=== PATIENT | male | born 1995 | race Caucasian/White ===

== ENCOUNTER 2021-10-10 19:10 | Emergency (ER) | payer BC, MEDICAID, SELFPAY ==
[2021-10-10 19:25] VITALS: BP 135/93; PULSE 81; RESP 15; TEMP 36.8; O2SAT 97; BMI 29.2
--- NOTE | 2021-10-10 19:29 | XRR_ITS ---
PROCEDURE INFORMATION: Exam: XR Left Hand Exam date and time: 10/10/2021 7:47 PM Age: 25 years old Clinical indication: Pain; Hand; Left; Additional info: Injury TECHNIQUE: Imaging protocol: Radiologic exam of the Left hand. Views: 3 or more views. COMPARISON: No relevant prior studies available. FINDINGS: Bones/joints: Fracture of the distal metaphysis of the fifth metacarpal with volar angulation of the distal fracture fragment. Findings are consistent with a boxer's fracture. No dislocation. Normal bone mineralization. No joint effusion. Joint spaces are maintained. Soft tissues: Moderate soft tissue swelling over the 5th metacarpal. No radiopaque foreign body. XR/XR hand LT min 3V* [id number] IMPRESSION: 1. Findings consistent with a boxer's fracture of the distal fifth metacarpal. 2. Moderate soft tissue swelling over the 5th metacarpal.
--- NOTE | 2021-10-10 20:52 | ED_ITS ---
HPI - Extremity Problem General: Chief complaint: Extremity Injury, Upper Stated complaint: Left Hand Pinky Injury Time Seen by Provider: 10/10/21 20:09 Source: patient Mode of arrival: ambulatory Limitations: no limitations History of Present Illness: 25-year-old male states that he had punched a picnic table 2 days ago. He states he had continued left hand pain since then. He states he had swelling as well. He states his pain is sharp in nature rates it a 5 out of 10 worse with palpation. Denies any other injuries. Associated symptoms: Deny chest pain, fever(s) or rash Review of Systems Const: Denies: fever(s), chills, body aches or change in appetite Eyes: Denies: blurry vision or eye discomfort ENMT: Denies: throat pain or dental pain Card: Denies: chest pain Resp: Denies: dyspnea GI: Denies: abdominal pain, nausea, vomiting or diarrhea : Denies: dysuria Musc: Reports: extremity pain Skin/Breast: Denies: rash Neuro: Denies: headache(s) Psych: Denies: depression Alec/Lymph: Denies: easy bruising All/Imm: Denies: urticaria PFSH ED PFSH: Medical History (Updated 10/10/21 @ 21:02 by Donnell Bojorquez MD) No pertinent past medical history Social History (Updated 10/10/21 @ 21:02 by Donnell Bojorquez MD) Substance/Drug Use: never Physical Exam Const: COMMON NORMALS: no acute distress, patient oriented x3 and healthy appearing HENMT: COMMON NORMALS: normocephalic and atraumatic HEAD & SCALP: normocephalic and atraumatic Eye: COMMON NORMALS: Equal, round and reactive pupils present and EOMs intact bilaterally PUPIL: Yes Equal, round and reactive pupils present Neck/C-Spine: COMMON NORMALS: full ROM and supple Chest: COMMONS NORMALS: normal inspection of the chest Resp: COMMON NORMALS: normal respiratory effort Cardio: COMMON NORMALS: regular rate, regular rhythm and No murmurs present (Cardio) RATE: regular rate RHYTHM: regular rhythm GI: INSPECTION: Yes normal to inspection Extremity: NARRATIVE EXTREMITY EXAM: Tenderness over fifth metacarpal left hand with some swelling Neuro: COMMON NORMALS: patient oriented x3, moves all extremities and no focal motor deficits Psych: COMMON NORMALS: mental status grossly normal, Normal thought process present and cooperative THOUGHT PROCESS: Normal thought process present Skin: COMMON NORMALS: no rashes or lesions noted and no wounds GENERAL SKIN EXAM: no rashes or lesions noted Course Vital Signs: Vital signs: Vital Signs Temperature 98.2 F 10/10/21 19:25 Pulse Rate 81 10/10/21 19:25 Respiratory Rate 15 10/10/21 19:25 Blood Pressure 135/93 10/10/21 19:25 Pulse Oximetry 97 10/10/21 19:25 MDM - Extremity (Nontraumatic) Medical Decision Making Patient presents here with a boxer's fracture. Patient placed in a ulnar gutter is to follow-up with orthopedics will prescribe pain meds for home. Lab Data Radiology Impressions Hand X-Ray 10/10/21 19:29 IMPRESSION: 1. Findings consistent with a boxer's fracture of the distal fifth metacarpal. 2. Moderate soft tissue swelling over the 5th metacarpal. Discharge Plan Discharge Patient Disposition: Home Clinical Impression: Boxer's fracture Qualifiers: Encounter type: initial encounter Fracture type: closed Qualified Code(s): S62.339A - Displaced fracture of neck of unspecified metacarpal bone, initial encounter for closed fracture Condition: Stable Prescriptions: New hydrocodone-acetaminophen 5-325 mg tablet 1 tab PO Q6H PRN (Reason: pain) Qty: 14 0RF Discharge Orders: Discharge ED (Routine); Ordered 10/10/21 Ordered By: Donnell Bojorquez Referrals: Adolph Chawla MD [Physician] - 1-3 days Discharge Diet: Advance as tolerated Discharge Activity: Resume usual activity Patient Instructions: Boxer Fracture (ED), Opioid Safety Coding Level of Care Code ED [employer] Crewmember for Laxmi Rodriguez
[2021-10-10] MEDS: HYDROcodone-acetaminophen 5-325 mg Tablet 1 TAB PO (21:04)
--- NOTE | 2021-10-12 14:59 | DCPLANNER ---
Addendum entered by Christi Cheng 10/20/21 13:38: Patient had a follow up appointment scheduled for 10.18.21 with Adrián Montana at ortho - patient did attend appointment. Original Note: manager ent had message to schedule a follow up appointment for patient with ortho. Case management sent patients information to the front office staff at ortho. Patients information will be printed and reviewed. Clinic will call patient with appointment information.
== END 2021-10-10 21:28 | disposition home or self-care (01) ==
PROVIDERS: Emergency Provider Emergency Medicine
DX: S62.307A Unspecified fracture of fifth metacarpal bone, left hand, initial encounter for closed fracture (principal); W22.09XA Striking against other stationary object, initial encounter
CPT/HCPCS: 73130; 99283

== ENCOUNTER → 2021-10-18 09:53 | Outpatient (BNVA) | payer BC, MEDICAID, SELFPAY | PROVIDERS: Visit Provider Nurse Practitioner Family | DX: W22.8XXA Striking against or struck by other objects, initial encounter (principal); S62.339A Displaced fracture of neck of unspecified metacarpal bone, initial encounter for closed fracture | CPT/HCPCS: 73130; 99214 ==

== ENCOUNTER 2021-10-18 15:40 | Outpatient (CLI) | payer BC, MEDICAID, SELFPAY | END 2021-10-18 15:41 | disposition home or self-care (01) | LOC: SPT 15:41 | PROVIDERS: Visit Provider Nurse Practitioner Family | DX: Z46.89 Encounter for fitting and adjustment of other specified devices (principal); S62.397D Other fracture of fifth metacarpal bone, left hand, subsequent encounter for fracture with routine healing; X58.XXXD Exposure to other specified factors, subsequent encounter | CPT/HCPCS: 97760; L3984 ==

== ENCOUNTER 2022-01-18 13:39 | Emergency (ER) | payer BC, MEDICAID, SELFPAY ==
[2022-01-18 13:43] VITALS: BP 157/106; PULSE 80; RESP 16; TEMP 36.3; O2SAT 95; BMI 29.2
--- NOTE | 2022-01-18 13:46 | XR_ITS ---
WS: [id number] Chest 2 views, 01/18/2022 Clinical Data: shortness of breath Comparison: PA and lateral chest, 01/14/2017. Findings: No nodules, masses or effusions are seen. The heart is normal. The pulmonary vascularity is not increased. No pneumonia or pneumothorax is seen. XR/XR chest 2V* [id number] Impression: Negative chest.
--- NOTE | 2022-01-18 14:39 | ED_ITS ---
HPI - SOB/Dyspnea General: Chief Complaint: Shortness of Breath/Dyspnea Stated Complaint: Sob Time Seen by Provider: 01/18/22 14:32 History of Present Illness: HPI Narrative: Patient is a 26-year-old male comes to the ED with shortness of breath and cough. Patient said he has had symptoms now for approximately 1 week. 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 cough is dry and nonproductive. He endorses having some wheezing, but denies any chest pain. No history of asthma but says patient does have an albuterol inhaler at home that he currently ran out of. Denies any fever, chills, nausea/vomiting, bladder or bowel symptoms. Associated symptoms: Deny abdominal pain, chest pain, fever(s), nausea, orthopnea, palpitations or vomiting Review of Systems Const: Denies: fever(s), chills or fatigue Eyes: Denies: change in vision or eye discomfort ENMT: Denies: throat pain, odynophagia, nasal discharge or nasal congestion Card: Denies: chest pain, palpitations, edema, swelling of feet/ankles, dyspnea on exertion or orthopnea Resp: Reports: dyspnea, non-productive cough and wheezing; Denies: productive cough GI: Denies: abdominal pain, nausea, vomiting, diarrhea, constipation or hematochezia : Denies: flank pain, difficulty urinating, dysuria or hematuria Musc: Denies: neck pain, back pain or extremity swelling Skin/Breast: Denies: rash or new lesions Neuro: Denies: headache(s), numbness in extremities or weakness in extremities [facility] ED PFSH: Medical History (Updated 01/18/22 @ 15:19 by BECCA Manzo) No pertinent family history No pertinent past medical history Physical Exam Const: COMMON NORMALS: no acute distress, patient oriented x3, healthy appearing and alert GENERAL APPEARANCE: cooperative and comfortable HENMT: COMMON NORMALS: normocephalic HEAD & SCALP: normocephalic MOUTH: Normal oral and palatal mucosa present THROAT: posterior oropharynx normal and uvula midline Neck/C-Spine: COMMON NORMALS: supple GENERAL: Yes normal visual inspection Resp: COMMON NORMALS: normal respiratory effort, No retractions and No use of accessory muscles AUSCULTATION: wheezes expiratory wheezes and throughout and diminished lung sounds bilateral in the lower lung chopra Cardio: COMMON NORMALS: regular rate, regular rhythm, S1 normal heart sound present, S2 normal heart sound present, No gallops present (Cardio), No clicks present (Cardio), No murmurs present (Cardio) and Peripheral pulses 2+ throughout RATE: regular rate RHYTHM: regular rhythm HEART SOUNDS: S1 normal heart sound present and S2 normal heart sound present PERIPHERAL PULS ES: Peripheral pulses 2+ throughout GI: COMMON NORMALS: Normal to inspection, nondistended, normoactive bowel sounds present, Soft to palpation, non-tender and no masses PALPATION: Yes Soft to palpation : COMMON NORMALS: Yes no CVA tenderness BLADDER/KIDNEY EXAM: Yes no CVA tenderness Back/Pelvis: COMMON NORMALS: no CVA tenderness Extremity: COMMON NORMALS: normal to inspection Neuro: COMMON NORMALS: patient oriented x3 SENSORIUM/ORIENTATION: Yes alert GAIT: Yes Normal gait present Skin: GENERAL SKIN EXAM: dry skin Course Vital Signs: Vital signs: Vital Signs Temperature 97.3 F L 01/18/22 13:43 Pulse Rate 72 01/18/22 14:58 Respiratory Rate 16 01/18/22 14:58 Blood Pressure 157/106 01/18/22 13:43 Pulse Oximetry 95 01/18/22 14:58 Oxygen Delivery Me thod 01/18/22 14:58 MDM - SOB/Dyspnea Medical Decision Making Patient is a 26-year-old male comes to the ED with shortness of breath and cough. Patient said he has had symptoms now for approximately 1 week. 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 cough is dry and nonproductive. He endorses having some wheezing, but denies any chest pain. Vitals are stable. Patient appears nontoxic in no acute distress. Upon auscultation he does have some bilateral expiratory wheezing throughout his lungs and some decreased lung sounds at the bases bilaterally. Rest of exam is benign. Chest x-ray showed no acute findings. Patient was given Solu-Medrol IM and DuoNeb breathing treatment here in the ED and his symptoms improved. He was stable for discharge home and diagnosed with reactive airway disease with wheezing and sent home with a prescription for Medrol Dosepak and an albuterol inhaler. Told to follow-up with his PCP within the next week for reevaluation. Return to ED precautions given. Patient understood and agreed with plan. Lab Data Labs/Radiology: Radiology Impressions Chest X-Ray 01/18/22 13:46 Impression: Negative chest. Discharge Plan Discharge Patient Disposition: Home Clinical Impression: RAD (reactive airway disease) with wheezing Qualifiers: Asthma severity: mild Asthma persistence: intermittent Asthma complication type: uncomplicated Qualified Code(s): J45.20 - Mild intermittent asthma, uncomplicated Condition: Stable Prescriptions: New albuterol sulfate 90 mcg/actuation HFA aerosol inhaler 2 inh inhalation Q6H PRN (Reason: shortness of breath or wheezing) Qty: 8.5 0RF Medrol (Kit) 4 mg tablets,dose pack See Rx Instructions .ROUTE .COMPLEX Qty: 21 0RF Rx Instructions: orally per package directions No Action (DME) FAST FORM CAST - LEFT See Rx Instructions .Route .MEDSUPPLY Qty: 1 0RF Rx Instructions: As directed tramadol 50 mg tablet 50 mg PO Q6H PRN (Reason: pain) Qty: 20 0RF hydrocodone-acetaminophen 5-325 mg tablet 1 tab PO Q6H PRN (Reason: pain) Qty: 14 0RF Discharge Orders: Discharge ED (Routine); Ordered 01/18/22 Ordered By: Tra Alas Discharge Diet: Regular Discharge Activity: Increase activity as tolerated Patient Instructions: Reactive Airways Disease (ED) Activity Restrictions/Additional Instructions: Follow-up with medical provider as directed. Take medications as prescribed. Return to the ER or your medical provider if condition worsens. Please read and understand discharge instructions. Thank you for choosing [facility] for your healthcare needs today. Please realize this is an emergency room and that we are providing you with a medical screening exam and this may not be complete and all inclusive of all the testing and or work up that you may need to determine your ailment or severity of your illness. It is very important that you follow up as instructed or that you return to the Emergency Department should you have concerns or if your condition changes or worsens in any way. Coding Level of Care Code ED Chucking Lathe Operator for Laxmi Rodriguez Exam Comprehensive
[2022-01-18] MEDS: ipratropium-albuterol 3 mL Neb 6 ML INHALATION (14:57)
[2022-01-18 14:58] VITALS: PULSE 72; RESP 16; O2SAT 95
[2022-01-18 15:19] VITALS: BP 143/88; PULSE 88; RESP 16; O2SAT 96
== END 2022-01-18 15:19 | disposition home or self-care (01) ==
PROVIDERS: Emergency Provider Physician Assistant
DX: J45.20 Mild intermittent asthma, uncomplicated (principal)
CPT/HCPCS: 71046; 94640; 96372; 99283; J2930

== ENCOUNTER 2022-07-27 14:02 | Emergency (ER) | payer BC, MEDICAID, SELFPAY ==
[2022-07-27 14:14] VITALS: BP 150/80; PULSE 61; RESP 14; TEMP 36.7; O2SAT 97
--- NOTE | 2022-07-27 15:17 | W.ED.BACK ---
HPI - Back Pain/Injury General: Chief Complaint: Back Pain/Injury Stated Complaint: back pain Time Seen by Provider: 07/27/22 14:26 History of Present Illness: Patient with no significant past medical history presents the emergency department with complaint of bilateral low back pain that began 2 days ago while he was lifting a trailer onto a bigg. He denies any direct trauma, but states that he feels like he pulled out his back and it has been hurting since. He denies any numbness or tingling, denies any use of blood thinners, denies any direct trauma, denies any IV drug use, even once, denies any bowel or bladder retention or incontinence, denies any saddle anesthesia. He has no difficulty walking. He is not taking any [id number]-[id number] medication, but did take a unknown muscle relaxer that his grandma gave him with minimal improvement. No other modifying factors, no other associated symptoms. Review of Systems General: Reports: 10 or more systems reviewed and unremarkable except in HPI and below PFSH ED PFSH: Medical History (Updated 07/27/22 @ 15:25 by Adrian Robison DO) No pertinent family history No pertinent past medical history Social History Substance/Drug Use: never Physical Exam Const: COMMON NORMALS: no acute distress and patient oriented x3 GENERAL APPEARANCE: cooperative and well kempt ORIENTATION/CONSCIOUSNESS: Yes awake HENMT: COMMON NORMALS: normocephalic, atraumatic, hearing grossly normal bilaterally, external ears normal and Normal external nose present HEAD & SCALP: normocephalic and atraumatic FACE & SINUS: normal facial exam NOSE: Normal external nose present EXTERNAL EAR: Yes external ears normal MOUTH: Normal oral and palatal mucosa present THROAT: posterior oropharynx normal Eye: COMMON NORMALS: Equal, round and reactive pupils present and EOMs intact bilaterally PUPIL: Yes Equal, round and reactive pupils present Neck/C-Spine: COMMON NORMALS: supple GENERAL: Yes normal visual inspection CERVICAL SPINE: No Cervical spine tenderness and No step off deformity Chest: COMMONS NORMALS: normal inspection of the chest Resp: COMMON NORMALS: normal respiratory effort, No retractions, No use of accessory muscles and clear to auscultation bilaterally AUSCULTATION: clear to auscultation bilaterally Cardio: COMMON NORMALS: regular rate and Peripheral pulses 2+ throughout RATE: regular rate PERIPHERAL PULSES: Peripheral pulses 2+ throughout GI: COMMON NORMALS: Normal to inspection, nondistended, normoactive bowel sounds present, Soft to palpation and non-tender PALPATION: Yes Soft to palpation : COMMON NORMALS: Yes no CVA tenderness BLADDER/KIDNEY EXAM: Yes no CVA tenderness Back/Pelvis: COMMON NORMALS: no CVA tenderness and thoracic and lumbar spine normal to inspection THORACIC SPINE/UPPER BACK: Yes normal to inspection, Yes thoracic ROM normal, Yes ROM limited, No pain with ROM, No thoracic spinal tenderness, No paraspinal muscle tenderness and No paraspinal muscle spasm LUMBAR SPINE/LOWER BACK: Yes normal to inspection, Yes lumbar ROM normal, Yes ROM limited, Yes pain with ROM, No lumbar spinal tenderness, Yes paraspinal muscle tenderness Lumbar paraspinal muscle tenderness: bilateral and No paraspinal muscle spasm Extremity: COMMON NORMALS: normal to inspection, full ROM and no calf tenderness GENERAL: No clubbing and No cyanosis Neuro: COMMON NORMALS: patient oriented x3, moves all extremities, no focal motor deficits, no sensory deficits noted and gait normal SENSORY EXAM: Yes other (No saddle anesthesia) Psych: COMMON NORMALS: mental status grossly normal, Normal thought process present, cooperative and activity/motor behavior normal APPEARANCE: Yes well kempt ATTITUDE: Yes calm THOUGHT PROCESS: Normal thought process present Skin: COMMON NORMALS: no rashes or lesions noted GENERAL SKIN EXAM: no rashes or lesions noted Course Vital Signs: Vital signs: Vital Signs Temperature 98.1 F 07/27/22 14:14 Pulse Rate 61 07/27/22 14:14 Respiratory Rate 14 07/27/22 14:14 Blood Pressure 150/80 07/27/22 14:14 Pulse Oximetry 97 07/27/22 14:14 Oxygen Delivery Me thod Room Air 07/27/22 14:14 MDM - Back Pain/Injury Medical Decision Making Patient's exam is unremarkable, appears to be mechanical low back pain, no concern for cord compression syndrome. Patient drove himself to the ER and will be driving home, will give him Motrin and Tylenol here, he can be discharged on a course of Motrin and Flexeril and follow-up with primary care. Patient advised to follow-up as directed, return to the emergency department with any new or worsening symptoms or if unable to follow-up as directed or tolerate p.o. intake. Patient verbalized understanding and agreement with this plan, all questions answered. Discharge Plan Discharge Patient Disposition: Home Clinical Impression: Strain of lumbar region Qualifiers: Encounter type: initial encounter Qualified Code(s): S39.012A - Strain of muscle, fascia and tendon of lower back, initial encounter Condition: Stable Prescriptions: New ibuprofen 600 mg tablet 600 mg PO Q8H PRN (Reason: pain) Qty: 30 0RF cyclobenzaprine 10 mg tablet 10 mg PO TID PRN (Reason: muscle spasm) Qty: 7 0RF No Action (DME) FAST FORM CAST - LEFT See Rx Instructions .Route .MEDSUPPLY Qty: 1 0RF Rx Instructions: As directed tramadol 50 mg tablet 50 mg PO Q6H PRN (Reason: pain) Qty: 20 0RF hydrocodone-acetaminophen 5-325 mg tablet 1 tab PO Q6H PRN (Reason: pain) Qty: 14 0RF albuterol sulfate 90 mcg/actuation HFA aerosol inhaler 2 inh inhalation Q6H PRN (Reason: shortness of breath or wheezing) Qty: 8.5 0RF Medrol (Kit) 4 mg tablets,dose pack See Rx Instructions .ROUTE .COMPLEX Qty: 21 0RF Rx Instructions: orally per package directions Discharge Orders: Discharge ED (Routine); Ordered 07/27/22 Ordered By: Adrian Robison Patient Instructions: Opioid Safety, Pain Management, Back Pain (ED), Low Back Strain (ED), Lower Back Exercises (ED) Coding Level of Care Code ED Retail Account Representative for Laxmi Rodriguez
[2022-07-27] MEDS: acetaminophen 500 mg Tablet 1000 MG PO (15:36)
[2022-07-27] MEDS: ibuprofen 800 mg tablet PO (15:36)
[2022-07-27 15:41] VITALS: PULSE 68; RESP 16; O2SAT 96
--- NOTE | 2022-08-01 15:10 | DCPLANNER ---
customer pricing manager called patient due to no primary care physician - patient declines at this time
== END 2022-07-27 15:41 | disposition home or self-care (01) ==
PROVIDERS: Emergency Provider Emergency Medicine
DX: S39.012A Strain of muscle, fascia and tendon of lower back, initial encounter (principal); X50.0XXA Overexertion from strenuous movement or load, initial encounter
CPT/HCPCS: 99283

== ENCOUNTER 2023-06-04 19:45 | Emergency (ER) | payer BC, MEDICAID, SELFPAY ==
[2023-06-04 19:54] VITALS: BP 137/79; PULSE 79; RESP 16; TEMP 36.4; O2SAT 97; BMI 31.5
--- NOTE | 2023-06-04 20:47 | ED_ITS ---
HPI - General Adult General: Chief complaint: General Medical Stated complaint: needs treated for STD Time Seen by Provider: 06/04/23 20:44 Source: patient Mode of arrival: ambulatory Limitations: no limitations History of Present Illness: 27-year-old male states that his girlfri end just been informed she tested positive for chlamydia he was recommended to come in to have testing as well as he has had unprotected sex with her. He states he had no penile pain or dysuria he has no complaints at this time Associated symptoms: Deny chest pain, dyspnea, nausea or vomiting Review of Systems Const: Denies: fever(s) or chills ENMT: Denies: throat pain or dental pain Card: Denies: chest pain Resp: Denies: dyspnea GI: Denies: abdominal pain, nausea, vomiting or diarrhea : Denies: dysuria Musc: Denies: neck pain or back pain PFS ED PFSH: Medical History No pertinent family history No pertinent past medical history Social History Substance/Drug Use: never Physical Exam Const: COMMON NORMALS: no acute distress, patient oriented x3 and healthy appearing HENMT: COMMON NORMALS: normocephalic and atraumatic HEAD & SCALP: normocephalic and atraumatic Eye: COMMON NORMALS: conjunctivae normal CONJUNCTIVA: Yes conjunctivae normal Neck/C-Spine: COMMON NORMALS: full ROM and supple Chest: COMMONS NORMALS: normal inspection of the chest Resp: COMMON NORMALS: normal respiratory effort Extremity: COMMON NORMALS: normal to inspection and full ROM Neuro: COMMON NORMALS: patient oriented x3, moves all extremities and no focal motor deficits Psych: COMMON NORMALS: mental status grossly normal, Normal thought process present and cooperative THOUGHT PROCESS: Normal thought process present Skin: COMMON NORMALS: no rashes or lesions noted and no wounds GENERAL SKIN EXAM: no rashes or lesions noted Course Vital Signs: Vital signs: Vital Signs Temperature 97.6 F 06/04/23 19:54 Pulse Rate 79 06/04/23 19:54 Respiratory Rate 16 06/04/23 19:54 Blood Pressure 137/79 06/04/23 19:54 Pulse Oximetry 97 06/04/23 19:54 Oxygen Delivery Me thod Room Air 06/04/23 19:54 MDM - General Adult Medical Decision Making Patient presents with STD exposure he is asymptomatic here we will check his urine but we will go ahead and treat while here since he had close exposure he s table for discharge No radiology studies performed this visit Discharge Plan Discharge Patient Disposition: Home Clinical Impression: Exposure to sexually transmitted disease (STD) Condition: Stable Prescriptions: No Action (DME) FAST FORM CAST - LEFT See Rx Instructions .Route .MEDSUPPLY Qty: 1 0RF Rx Instructions: As directed tramadol 50 mg tablet 50 mg PO Q6H PRN (Reason: pain) Qty: 20 0RF hydrocodone-acetaminophen 5-325 mg tablet 1 tab PO Q6H PRN (Reason: pain) Qty: 14 0RF ibuprofen 600 mg tablet 600 mg PO Q8H PRN (Reason: pain) Qty: 30 0RF cyclobenzaprine 10 mg tablet 10 mg PO TID PRN (Reason: muscle spasm) Qty: 7 0RF albuterol sulfate 90 mcg/actuation HFA aerosol inhaler 2 inh inhalation Q6H PRN (Reason: shortness of breath or wheezing) Qty: 8.5 0RF Medrol (Kit) 4 mg tablets,dose pack See Rx Instructions .ROUTE .COMPLEX Qty: 21 0RF Rx Instructions: orally per package directions Discharge Orders: Discharge ED (Routine); Ordered 06/04/23 Ordered By: Donnell Bojorquez Discharge Diet: Advance as tolerated Discharge Activity: Resume usual activity Patient Instructions: Sexually Transmitted Diseases (ED) Coding Level of Care Code ED Manufacturing Advisor for Laxmi Rodriguez
[2023-06-04] MEDS: azithromycin 250 mg Tablet 1000 MG PO (20:59)
[2023-06-04] MEDS: cefTRIAXone 250 MG in water for injection-sterile 0.9 ML IM (21:00)
[2023-06-06 17:59] LABS: Chlamydia Trachomatis RNA TMA DETECTED (NOT DETECTED); Neisseria Gonorrhoeae RNA, TMA NOT DETECTED (NOT DETECTED)
== END 2023-06-04 21:04 | disposition home or self-care (01) ==
PROVIDERS: Emergency Provider Emergency Medicine
DX: Z20.2 Contact with and (suspected) exposure to infections with a predominantly sexual mode of transmission (principal)
CPT/HCPCS: 87491; 87591; 96372; 99284; J0696; Q0144

== ENCOUNTER 2024-01-10 18:24 | Inpatient (IN) | payer SELFPAY ==
[2024-01-10 18:28] VITALS: BP 171/152; PULSE 101; RESP 26; TEMP 36.8; O2SAT 89
--- NOTE | 2024-01-10 20:04 | XRR_ITS ---
PROCEDURE INFORMATION: Exam: XR Chest Exam date and time: 01/10/2024 8:53 PM Age: 28 years old Clinical indication: Shortness of breath; Patient HX: Chest pain; SOB; Wheezing TECHNIQUE: Imaging protocol: Radiologic exam of the chest. Views: 1 view. COMPARISON: CR XR chest 2V* [id number] 01/18/2022 1:53 PM FINDINGS: Lungs: Mildly increased left hilar prominence. No consolidation. Pleural spaces: Unremarkable. No pleural effusion. No pneumothorax. Heart/Mediastinum: Unremarkable. No cardiomegaly. Bones/joints: Unremarkable. XR/XR chest 1V portable [id number] IMPRESSION: 1. No acute findings. 2. Increased left hilar prominence is nonspecific. This could represent lymphadenopathy or other etiology. Nonemergent CT chest could be considered for further assessment.
[2024-01-10 21:07] LABS: Basophils # 0.1 10^3/uL (0.0-0.1); Basophils % 1.1 %; Eosinophils # 0.9 10^3/uL (0.0-0.8); Eosinophils % 8.6 %; Hematocrit 49.9 % (37-53); Lymphocytes # 2.7 10^3/uL (0.8-4.8); Lymphocytes % 24.7 %; Mean Corpuscular HGB Conc 33.7 g/dL (30-55); Mean Corpuscular Hemoglobin 29.6 pg (27-33); Mean Platelet Volume 9.7 fL (7.4-10.4); Monocytes % 9.1 %; Neutrophils # 6.09 10^3/uL (1.8-7.7); Neutrophils % 56.2 %; Nucleated Red Blood Cells % 0 %; Platelet Count 290 10^3/cmm (157-399); Red Blood Count 5.67 10^6/uL (3.85-5.65); Red Cell Distribution Width 12.6 % (12.1-15.1); White Blood Count 10.82 10^3/uL (3.29-11.43)
[2024-01-10 21:26] LABS: Anion Gap 16.1 (5-19); Blood Urea Nitrogen 14 mg/dL (6-20); Calcium 9.5 mg/dL (8.5-10.5); Carbon Dioxide 27 mmol/L (22-29); Chloride 98 mmol/L (98-107); Glomerular Filtration Rate 66.2 mL/min (90-130); Glucose 92 mg/dL (65-115); Osmolality Calculated 284 mOsm/kg (285-295); Potassium 4.1 mmol/L (3.5-5.1); Sodium 137 mmol/L (136-145)
[2024-01-10 21:27] LABS: Creatinine Clr Calc Pharmacy 103.2579
--- NOTE | 2024-01-10 21:33 | ECG_ITS ---
[facility] Test Date: 2024-01-10 Pat Name: Kim Horvath Department: Room: Gender: Male [employer]: : 1995 Requested By: Didier Dutta Order Number: [id number] Carolynn MD: Praful Cannon M.D. Measurements Intervals [facility] Rate: 106 P: 60 FL: 163 QRS: 78 QRSD: 89 T: 52 QT: 303 QTc: 404 Interpretive Statements SINUS TACHYCARDIA POSSIBLE LEFT ATRIAL ENLARGEMENT [-0.1mV P-WAVE IN V1/V2] ABNORMAL RHYTHM ECG Compared to ECG 01/13/2017 21:27:54 Sinus bradycardia no longer present Electronically Signed On 01-11-2024 21:01:22 CDT by Praful Cannon M.D. [email or web address]
--- NOTE | 2024-01-10 21:39 | CTR_ITS ---
PROCEDURE INFORMATION: Exam: CTA Chest With Contrast Exam date and time: 01/10/2024 10:04 PM Age: 28 years old Clinical indication: Shortness of breath; On breathing; Patient HX: Painful inspirations with SOB and tachycardia. ; Additional info: Cp SOB tachycardia TECHNIQUE: Imaging protocol: Computed tomographic angiography of the chest with contrast. Exam focused on the arteries. 3D rendering (Not supervised by radiologist): MIP and/or 3D reconstructed images were created by the technologist. Radiation optimization: All CT scans at this facility use at least one of these dose optimization techniques: automated exposure control; mA and/or kV adjustment per patient size (includes targeted exams where dose is matched to clinical indication); or iterative reconstruction. Contrast material: OMNI 350; Contrast volume: 60 ml; Contrast route: INTRAVENOUS (IV); COMPARISON: CR (CHEST, ) 01/10/2024 8:53 PM RADIATION DOSE METRICS: Total DLP (mGy-cm): 526.32 FINDINGS: Pulmonary arteries: Normal. No pulmonary emboli. Aorta: Unremarkable. No aortic aneurysm. No aortic dissection. Lungs: A few scattered ground-glass opacities are seen in the left upper and left lower lobes. No focal consolidation. Pleural spaces: Unremarkable. No pneumothorax. No pleural effusion. Heart: Unremarkable. No cardiomegaly. No pericardial effusion. Lymph nodes: Unremarkable. No enlarged lymph nodes. Liver: Marked hepatic steatosis. Bones/joints: Unremarkable. No acute fracture. Soft tissues: Unremarkable. CT/CT angio chest PE protcl [id number] IMPRESSION: 1. No evidence of pulmonary emboli. 2. Scattered ground-glass opacities in the left upper and lower lobes could represent a multifocal infection from an atypical infectious process. Recommend imaging follow-up after clinical treatment to document resolution. 3. Severe hepatic steatosis.
[2024-01-10 21:50] VITALS: PULSE 114; RESP 26; O2SAT 93
[2024-01-10 21:55] LABS: ABG PCO2 42.5 mmHg (35-45); ABG PH Result 7.36 (7.35-7.45); Arterial Blood Gas Hematocrit 52.5 % (42-52); Base Excess ABG -1.4 mmol/L (-2.0-2.0); Blood Gas Allen Test Pos; Blood Gas Sample Type Arterial; HCO3 ABG 24.2 mmol/L (22-26); PO2 ABG 69.1 mmHg (80.0-100.0)
[2024-01-10 21:56] LABS: Blood Gas Operator Identificat 4D; Blood Gas Sample Site Radial, right; Oxygen Device NC; PO2 FiO2 Ratio Arterial Blood 215
[2024-01-10] MEDS: methylPREDNISolone sod succ 125 mg/2 mL INJ IVP (21:57)
[2024-01-10 22:00] VITALS: PULSE 108
[2024-01-10] MEDS: ipratropium-albuterol 3 mL Neb INHALATION (22:00)
[2024-01-10 22:08] LABS: Covid PCR NEGATIVE (Negative); Influenza A NEGATIVE (Negative); Influenza B NEGATIVE (Negative); Respiratory Syncytial Virus Ce NEGATIVE (Negative)
[2024-01-10] MEDS: iohexol 350 mg/mL 500 mL Btl (per mL) IV (22:08)
[2024-01-10 22:16] LABS: Lactic Sepsis W/Reflex 1.7 mmol/L (0.5-2.2)
[2024-01-10 22:18] LABS: Troponin(5th) Baseline 8 ng/L (0-15)
[2024-01-10 22:19] VITALS: BP 134/105; PULSE 99; RESP 18; O2SAT 93
--- NOTE | 2024-01-10 22:25 | ED_ITS ---
HPI - SOB/Dyspnea 2 General: Chief Complaint: Shortness of Breath/Dyspnea Stated Complaint: trouble breathing Time Seen by Provider: 01/10/24 21:29 History of Present Illness: HPI Narrative: 28-year-old male patient who says he is been sick for a week with cough, shortness of breath, and some body aches. His states that he can walk down the [place]inn without resting for several minutes. Cough is productive of clear to white sputum. He has had noisy breathing. No sick contacts. He does not have a history of asthma. In triage, his saturations were 89% on room air with tachypnea. They were 87 on arrival to his room. Related Data Previous Rx's Medication Instructions Recorded hydrocodone 5 mg-acetaminophen 325 1 tab PO Q6H PRN pain #14 tabs 10/10/21 mg tablet FAST FORM CAST - LEFT #1 ea 10/18/21 tramadol 50 mg tablet 50 mg PO Q6H PRN pain #20 tabs 10/18/21 albuterol sulfate 90 mcg/actuation 2 inh inhalation Q6H PRN shortness 01/18/22 aerosol inhaler of breath or wheezing #8.5 grams methylprednisolone 4 mg tablets in See Rx Instructions PO .COMPLEX 01/18/22 a dose pack (Medrol (Kit)) #21 ea cyclobenzaprine 10 mg tablet 10 mg PO TID PRN muscle spasm #7 07/27/22 tabs ibuprofen 600 mg tablet 600 mg PO Q8H PRN pain #30 tabs 07/27/22 Allergies Allergy/AdvReac Type Severity Reaction Status Date / Time No Known Allergies Allergy Verified 01/10/24 18:33 [facility] ED 2 PFSH: Medical History No pertinent family history No pertinent past medical history Social History Substance/Drug Use: never Physical Exam 2 Const: COMMON NORMALS: no acute distress GENERAL APPEARANCE: cooperative and ill appearing; not frail appearing HENMT: COMMON NORMALS: normocephalic, atraumatic and Normal external nose present HEAD & SCALP: normocephalic and atraumatic FACE & SINUS: normal facial exam and face symmetric NOSE: Normal external nose present Eye: COMMON NORMALS: Equal, round and reactive pupils present and EOMs intact bilaterally PUPIL: Yes Equal, round and reactive pupils present Neck/C-Spine: GENERAL: Yes trachea midline Chest: CHEST: Yes Symmetrical chest wall rise Resp: EFFORT & INSPECTION: No able to speak in complete sentences, Yes symmetric chest movement, Yes tachypneic, Yes labored and No retractions A USCULTATION: rhonchi and wheezes Cardio: COMMON NORMALS: regular rate and regular rhythm RATE: regular rate RHYTHM: regular rhythm GI: COMMON NORMALS: Normal to inspection, nondistended, normoactive bowel sounds present Extremity: COMMON NORMALS: no pedal edema Neuro: SANDRA COMA SCALE: document GCS findings Sandra coma scale eye opening: Spontaneous [place] coma scale verbal response: Orientated [place] coma scale motor response: Obey commands Sandra coma scale total score: 15 S ENSORY EXAM: Yes extremities (intact) Psych: COMMON NORMALS: speech normal SPEECH: Yes normal speech Skin: COMMON NORMALS: no rashes or lesions noted GENERAL SKIN EXAM: no rashes or lesions noted Course 2 Vital Signs: Vital signs: Vital Signs Temperature 98.2 F 01/10/24 18:28 Pulse Rate 110 H 01/10/24 23:45 Respiratory Rate 18 01/10/24 22:19 Blood Pressure 147/83 01/10/24 23:45 Pulse Oximetry 93 01/10/24 23:45 Oxygen Delivery Me thod Nasal Cannula 01/10/24 23:45 Oxygen Flow Rate 3 01/10/24 23:45 MDM - SOB/Dyspnea Medical Decision Making Patient has had shortness of breath, chest discomfort on and off, tachycardia and tachypnea. He is hypoxic on presentation. His blood gas shows a pH of 7.36 despite tachypnea his chest x-ray is nonacute. He is improved with nasal cannula oxygenation, DuoNeb treatment, Solu-Medrol, and magnesium. He still requiring quite a bit of oxygen to maintain sats above 90%. He is in less distress. CTA of the chest shows scattered groundglass opacities in the left upper and lower lobes likely an atypical pneumonia. He has received Rocephin and Zithromax here. Given his oxygen requirement, he will be admitted. Will still require breathing treatments, etc. Hospitalist has accepted Lab Data 01/10/24 20:39 01/10/24 20:39 Labs/Radiology: Radiology Impressions Chest X-Ray 01/10/24 20:04 IMPRESSION: 1. No acute findings. 2. Increased left hilar prominence is nonspecific. This could represent lymphadenopathy or other etiology. Nonemergent CT chest could be considered for further assessment. Chest CTA 01/10/24 21:39 IMPRESSION: 1. No evidence of pulmonary emboli. 2. Scattered ground-glass opacities in the left upper and lower lobes could represent a multifocal infection from an atypical infectious process. Recommend imaging follow-up after clinical treatment to document resolution. 3. Severe hepatic steatosis. Laboratory Results WBC 10.82 10^3/uL (3.29-11.43) 01/10/24 20:39 RBC 5.67 10^6/uL (3.85-5.65) H 01/10/24 20:39 Hgb 16.80 g/dL (11.27-16.99) 01/10/24 20:39 Hct 49.9 % (37-53) 01/10/24 20:39 MCV 88.0 fl (82-101) 01/10/24 20:39 MCH 29.6 pg (27-33) 01/10/24 20:39 MCHC 33.7 g/dL (30-55) 01/10/24 20:39 RDW 12.6 % (12.1-15.1) 01/10/24 20:39 Plt Count 290 10^3/cmm (157-399) 01/10/24 20:39 MPV 9.7 fL (7.4-10.4) 01/10/24 20:39 Neut % (Auto) 56.2 % 01/10/24 20:39 Lymph % (Auto) 24.7 % 01/10/24 20:39 Baker % (Auto) 9.1 % 01/10/24 20:39 Eos % (Auto) 8.6 % 01/10/24 20:39 Baso % (Auto) 1.1 % 01/10/24 20:39 Neut # (Auto) 6.09 10^3/uL (1.8-7.7) 01/10/24 20:39 Lymph # (Auto) 2.7 10^3/uL (0.8-4.8) 01/10/24 20:39 Baker # (Auto) 1.0 10^3/uL (0.2-0.9) H 01/10/24 20:39 Eos # (Auto) 0.9 10^3/uL (0.0-0.8) H 01/10/24 20:39 Baso # (Auto) 0.1 10^3/uL (0.0-0.1) 01/10/24 20:39 Nucleated RBC % (auto) 0 % 01/10/24 20:39 Nucleated RBCs # 0.0 /100WBC 01/10/24 20:39 Specimen Type Arterial 01/10/24 21:46 Sample Site Radial, right 01/10/24 21:46 ABG pH 7.36 (7.35-7.45) 01/10/24 21:46 ABG pCO2 42.5 mmHg (35-45) 01/10/24 21:46 ABG pO2 69.1 mmHg (80.0-100.0) L 01/10/24 21:46 ABG PO2/FiO2 Ratio 215 01/10/24 21:46 ABG HCO3 24.2 mmol/L (22-26) 01/10/24 21:46 ABG Base Excess -1.4 mmol/L (-2.0-2.0) 01/10/24 21:46 Sawyer Test Pos 01/10/24 21:46 Hematocrit 52.5 % (42-52) H 01/10/24 21:46 O2 Delivery Device Nc 01/10/24 21:46 O2 Liters/Min 3.0 % 01/10/24 21:46 FiO2 32.0 % 01/10/24 21:46 Ditch Inspector ID [id number] 01/10/24 21:46 Sodium 137 mmol/L (136-145) 01/10/24 20:39 Potassium 4.1 mmol/L (3.5-5.1) 01/10/24 20:39 Chloride 98 mmol/L (98-107) 01/10/24 20:39 Carbon Dioxide 27 mmol/L (22-29) 01/10/24 20:39 Anion Gap 16.1 (5-19) 01/10/24 20:39 BUN 14 mg/dL (6-20) 01/10/24 20:39 Creatinine 1.3 mg/dL (0.7-1.2) H 01/10/24 20:39 GFR Calculation 66.2 mL/min (90-130) L 01/10/24 20:39 Glucose 92 mg/dL (65-115) 01/10/24 20:39 Calculated Osmolality 284 mOsm/kg (285-295) L 01/10/24 20:39 Lactic Acid 1.7 mmol/L (0.5-2.2) 01/10/24 21:50 Calcium 9.5 mg/dL (8.5-10.5) 01/10/24 20:39 Troponin T Baseline 8 ng/L (0-15) 01/10/24 21:50 Coronavirus (PCR) Negative (Negative) 01/10/24 21:26 Influenza A (PCR) Negative (Negative) 01/10/24 21:26 Influenza Type B (PCR) Negative (Negative) 01/10/24 21:26 RSV (PCR) Negative (Negative) 01/10/24 21:26 All radiology interpretation(s) finalized by discharge Discharge Plan Discharge Patient Disposition: Admitted As Inpatient Clinical Impression: Community acquired pneumonia, Acute hypoxemic respiratory failure Condition: Fair Prescriptions: No Action (DME) FAST FORM CAST - LEFT See Rx Instructions .Route .MEDSUPPLY Qty: 1 0RF Rx Instructions: As directed tramadol 50 mg tablet 50 mg PO Q6H PRN (Reason: pain) Qty: 20 0RF hydrocodone-acetaminophen 5-325 mg tablet 1 tab PO Q6H PRN (Reason: pain) Qty: 14 0RF ibuprofen 600 mg tablet 600 mg PO Q8H PRN (Reason: pain) Qty: 30 0RF cyclobenzaprine 10 mg tablet 10 mg PO TID PRN (Reason: muscle spasm) Qty: 7 0RF albuterol sulfate 90 mcg/actuation HFA aerosol inhaler 2 inh inhalation Q6H PRN (Reason: shortness of breath or wheezing) Qty: 8.5 0RF Medrol (Kit) 4 mg tablets,dose pack See Rx Instructions .ROUTE .COMPLEX Qty: 21 0RF Rx Instructions: orally per package directions Coding Level of Care Code ED Sales And Marketing Assistant for Laxmi Rodriguez
[2024-01-10] MEDS: magnesium sulfate premix 2 GM/50 ML PIGGYBACK IV (22:32)
--- NOTE | 2024-01-10 22:59 | PC.NURSE ---
Assumed care from Sadie PRATHER at this time.
[2024-01-10 23:11] VITALS: PULSE 94; O2SAT 91
[2024-01-10] MEDS: cefTRIAXone 1,000 mg SDV 1000 MG IVP (23:39)
[2024-01-10] MEDS: azithromycin 500 MG in sodium chloride 0.9% 250 ML 250 MG IV (23:39)
--- NOTE | 2024-01-10 23:41 | ECG_ITS ---
[facility] Test Date: 2024-01-10 Pat Name: Kim Horvath Department: Room: Gender: Male Slope Runner: : 1995 Requested By: Didier Dutta Order Number: [id number] Carolynn MD: Praful Cannon M.D. Measurements Intervals [place] Rate: 91 P: 48 TX: 167 QRS: 67 QRSD: 95 T: 43 QT: 328 QTc: 404 Interpretive Statements SINUS RHYTHM Compared to ECG 01/10/2024 21:33:27 Sinus tachycardia no longer present Electronically Signed On 01-11-2024 21:18:06 CDT by Praful Cannon M.D. [email or web address] Softwareadena fayette medical centerINRFOOD/store/OM/[id number]
[2024-01-10 23:45] VITALS: BP 147/83; PULSE 110; O2SAT 93
[2024-01-11] VITALS (18 sets, daily range): BP systolic 139–168; BP diastolic 84–103; PULSE 72–113; RESP 14–22; TEMP 36.5–36.8; O2SAT 91–95; BMI 33.1
--- NOTE | 2024-01-11 00:05 | PC.NURSE ---
Report was called to Shruti FERNANDES on [place]. All questions and concerns were addressed at time of report.
--- NOTE | 2024-01-11 01:51 | P.HP_ITS ---
Providers/Chief Complaint 2 Admitting Physician: Enriqueta Coleman MD Chief Complaint: trouble breathing History of Present Illness Kim Horvath is a 28 year old male with no known PMH who presented to the ER today with c/o shortness of breath, cough that started about w week ago. He states that he developed subjective fever, cough and dyspnea one week ago. He feels short of breath with minimal exertion. He has been using his grandmother's inhaler at home (doesn't know what kind) without any relief. He has a new oxygen requirement of 3 L/min supplemental oxygen via nasal cannula. Denies any chest pain. Denies any known cardiac history. No h/o asthma or COPD. Ex smoker, quit 6 months ago. No h/o vaping. no known sick contacts. Has 2 kids- 2 yrs and 8 mo- neither is sick. No recent travel. Has dogs as pets. Review of Systems 2 General: Reports: 10 or more systems reviewed and unremarkable except in HPI and below Const: Denies: fever(s), chills or body aches Eyes: Denies: change in vision, blurry vision or photophobia ENMT: Reports: hoarseness; Denies: throat pain, enlarged tonsils, odynophagia or nasal congestion Card: Denies: chest pain, palpitations, irregular heart rhythm, edema, swelling of feet/ankles, lightheadedness, pre-syncope, dyspnea on exertion or orthopnea Resp: Denies: dyspnea, productive cough, non-productive cough, wheezing, stridor, pain on inspiration, change in phlegm color, hemoptysis or chest congestion GI: Denies: abdominal pain, nausea, vomiting, hematemesis, coffee ground emesis, dysphagia, heartburn, diarrhea, constipation, GI cramping, change in stool character, hematochezia or melena : Denies: flank pain, dysuria, urinary frequency, urinary urgency, urinary hesitancy or hematuria Musc: Denies: neck pain, back pain, extremity pain, joint swelling, joint warmth or deformity Neuro: Denies: headache(s), numbness in extremities, weakness in extremities, sensory changes, difficulty walking, frequent falls, dizziness, vertigo, behavioral changes, Slurred speech present or seizure-like activity Psych: Denies: anxiety, depression, suicidal ideation or homicidal ideation Endo: Denies: polyuria, polydipsia, tired all the time, cold intolerance or hot flashes Alec/Lymph: Denies: easy bruising or easy bleeding Medications/Allergies Home Medications Medication Instructions Recorded Confirmed Last Taken Type FAST FORM CAST - LEFT #1 ea 10/18/21 10/18/21 Unknown Rx ibuprofen 600 mg tablet 600 mg PO Q8H PRN pain #30 tabs 07/27/22 01/11/24 Unknown Rx Allergies Allergy/AdvReac Type Severity Reaction Status Date / Time No Known Allergies Allergy Verified 01/10/24 18:33 PFSH Acute 2 PFSH: Medical History No pertinent family history No pertinent past medical history Social History Substance/Drug Use: never Vitals/I&O/Wt Last Vital Signs Temp 98.0 F 01/11/24 01:03 Pulse 88 01/11/24 01:03 Resp 22 H 01/11/24 01:03 BP 139/90 01/11/24 01:03 Pulse Ox 93 01/11/24 01:03 O2 Del Method Nasal Cannula 01/11/24 01:04 O2 Flow Rate 3 01/10/24 23:45 01/10/24 01/10/24 01/11/24 14:59 22:59 06:59 Intake Total 300 / 300 Balance 300 / 300 Weight last 48 hrs Weight 107.728 kg Weight 104.326 kg Physical Exam 2 Narrative: General: No acute distress, AO x3 HEENT: PERRLA, pupils bilaterally equal and reactive, pallors not present Chest: scattered wheezing to auscultation B/L ; R>L. CVS: S1-S2 regular, no murmurs, no tachycardia, no gallops, no rubs Abdomen: Soft, nontender, no organomegaly, bowel sounds present Neuro: No focal deficits, no facial deformity, AO x3, power 5/5 in all limbs Data 01/10/24 20:39 01/10/24 20:39 Micro: Microbiology 01/10/24 22:47 Blood Culture - Preliminary Blood SPECIMEN COLLECTED 01/10/24 21:50 Blood Culture - Preliminary Blood SPECIMEN COLLECTED Other data: CT/CT angio chest PE protcl [id number] IMPRESSION: 1. No evidence of pulmonary emboli. 2. Scattered ground-glass opacities in the left upper and lower lobes could represent a multifocal infection from an atypical infectious process. Recommend imaging follow-up after clinical treatment to document resolution. 3. Severe hepatic steatosis. A&P Assessment and plan (1) Community acquired pneumonia: Qualifiers: Laterality: left Lung location: unspecified part of lung Qualified Code(s): J18.9 - Pneumonia, unspecified organism (2) Acute hypoxemic respiratory failure: (3) Reactive airway disease: (4) Acute bronchitis: Plan 28-year-old male without any significant known comorbidities presenting to the hospital today with chief complaints of 1 week of cough and dyspnea which has been progressing over the past week. He has a new oxygen requirement of 3 L/min today. CTA of the chest negative for pulmonary embolism. Showed scattered bi lateral multifocal opacities which likely represent community-acquired pneumonia, possible atypical pneumonia. Possibility of recent viral pneumonitis with overlying acute bacterial bronchitis versus pneumonia not excluded. Bilateral wheezing on exam right worse than left. Start IV ceftriaxone 1 g every 24 hours and doxycycline 100 mg twice daily for atypical process. Check MRSA nasal swab, urine bacterial antigen, urine Legionella antigen, sputum Gram stain and culture. Blood culture taken in the ER, currently pending Methylprednisolone 40 mg IV every 8 hours. Diffuse bilateral wheezing may be apprenticeship training representative of bronchitis versus reactive airway disease after recent infection. DuoNeb inhalation every 6 hours, budesonide 0.5 mg twice daily Supplemental O2 to keep saturation greater than 92%. EKG without any acute ST-T wave changes. Troponin series unremarkable. Clinically appearing to be euvolemic. Monitor for improvement with above treatment, further orders to be dependent on clinical course. DVT prophylaxis: Lovenox 40 mg subcutaneously every 24 hours Full code Attestations 2 Medical Necessity Statement*: Greater than 2 midnight stay is anticipated at this time Coding Level of Care Code Acute Code for Chg Fwd High MDM includes number and complexity of problems actively addressed during encounter, amount and/or complexity of data reviewed/ordered and described risk of complication, morbidity or mortality of management as documented Diagnoses Community acquired pneumonia J18.9 Laterality: left Lung location: unspecified part of lung Acute hypoxemic respiratory failure J96.01 Reactive airway disease J45.909 Acute bronchitis J20.9
[2024-01-11] MEDS: ipratropium-albuterol 3 mL Neb INHALATION ×4 (02:52→20:10)
--- NOTE | 2024-01-11 03:12 | ECG_ITS ---
[facility] Test Date: 2024-01-11 Pat Name: Kim Horvath Department: Room: 277 Gender: Male Picker Operator: : 1995 Requested By: Didier Dutta Order Number: [id number] Carolynn MD: Praful Cannon M.D. Measurements Intervals [place] Rate: 76 P: 23 MO: 159 QRS: 64 QRSD: 94 T: 38 QT: 355 QTc: 400 Interpretive Statements SINUS RHYTHM Compared to ECG 01/10/2024 23:41:31 No significant changes Electronically Signed On 01-11-2024 21:18:31 CDT by Praful Cannon M.D. [email or web address] children's hospitalCar Guy Nationgood samaritan hospitalAllele Biotech/store/OM/[id number]
[2024-01-11 04:13] LABS: NT Pro B Type Natriuretic Pept < 36 pg/mL (0-125); Procalcitonin 0.11 ng/mL (0-0.5)
[2024-01-11 04:26] LABS: C Reactive Protein 19.2 mg/L (0.0-4.9)
[2024-01-11] MEDS: methylPREDNISolone sod succ 40 mg/mL INJ IVP ×3 (04:53→21:03)
[2024-01-11 06:52] LABS: MRSA PCR OZH (swab) NOT DETECTED (Negative)
[2024-01-11] MEDS: budesonide 0.5 mg/2 mL Neb INHALATION ×2 (07:52→20:09)
[2024-01-11] MEDS: pantoprazole DR 40 mg Tablet PO (08:46)
[2024-01-11] MEDS: benzonatate 100 mg Capsule PO ×2 (08:46→17:33)
[2024-01-11] MEDS: doxycycline 100 mg Tablet PO ×2 (08:46→17:33)
[2024-01-11 11:31] LABS: Basophils % 0.2 %; Hematocrit 48.1 % (37-53); Lymphocytes # 1.6 10^3/uL (0.8-4.8); Lymphocytes % 17.6 %; Mean Corpuscular HGB Conc 33.7 g/dL (30-55); Mean Corpuscular Hemoglobin 29.3 pg (27-33); Mean Platelet Volume 9.7 fL (7.4-10.4); Monocytes # 0.3 10^3/uL (0.2-0.9); Monocytes % 3.6 %; Neutrophils # 7.28 10^3/uL (1.8-7.7); Neutrophils % 78.2 %; Nucleated Red Blood Cells % 0 %; Platelet Count 311 10^3/cmm (157-399); Red Blood Count 5.53 10^6/uL (3.85-5.65); Red Cell Distribution Width 12.6 % (12.1-15.1); White Blood Count 9.32 10^3/uL (3.29-11.43)
[2024-01-11 11:50] LABS: Estmated Average Glucose 111; Hemoglobin A1C 5.5 % (4.0-6.0)
[2024-01-11 12:06] LABS: Alanine Aminotransferase 115 U/L (0-41); Albumin Level 4.5 g/dL (3.5-5.2); Alkaline Phosphatase 96 U/L (40-130); Anion Gap 18.2 (5-19); Aspartate Amino Transferase 31 U/L (0-40); Blood Urea Nitrogen 15 mg/dL (6-20); Calcium 9.4 mg/dL (8.5-10.5); Carbon Dioxide 22 mmol/L (22-29); Chloride 100 mmol/L (98-107); Creatinine Clr Calc Pharmacy 138.5367; Globulin 3.3 g/dL (1.3-4.6); Glomerular Filtration Rate 89.6 mL/min (90-130); Glucose 137 mg/dL (65-115); Iron 78 ug/dL (59-158); Osmolality Calculated 285 mOsm/kg (285-295); Percent Saturation 25.4 % (20-50); Potassium 4.2 mmol/L (3.5-5.1); Sodium 136 mmol/L (136-145); Total Bilirubin 0.4 mg/dL (0.15-1.2); Total Iron Binding Capacity 306 mcg/dl; Total Protein 7.8 g/dL (6.6-8.7); Unsaturated Iron Binding 228 ug/dL (112-347)
[2024-01-11 12:21] LABS: Procalcitonin 0.09 ng/mL (0-0.5); Vitamin B12 584 pg/mL (232-1245)
[2024-01-11 13:48] LABS: Adenovirus Not Detected (NOT DETECT); Chlamydia Pneumoniae Not Detected (NOT DETECT); Coronavirus 229E,HKU1,NL63,OC4 Not Detected (NOT DETECT); Human Metapneumovirus Not Detected (NOT DETECT); Human Rhinovirus/Enterovirus Not Detected (NOT DETECT); Influenza A Not Detected (NOT DETECT); Influenza A H1 Not Detected (NOT DETECT); Influenza A H1-2009 Not Detected (NOT DETECT); Influenza A H3 Not Detected (NOT DETECT); Influenza B Not Detected (NOT DETECT); Mycoplasma Pneumoniae Not Detected (NOT DETECT); Parainfluenza Virus Type 1 Not Detected (NOT DETECT); Parainfluenza Virus Type 2 Not Detected (NOT DETECT); Parainfluenza Virus Type 3 Not Detected (NOT DETECT); Parainfluenza Virus Type 4 Not Detected (NOT DETECT); Respiratory Syncytial Virus A Not Detected (NOT DETECT); Respiratory Syncytial Virus B Not Detected (NOT DETECT); SARS-COV-2 Not Detected (NOT DETECT)
[2024-01-11 14:07] LABS: Amphetamines Screen Urine Negative (Negative); Barbiturates Screen Urine Negative (Negative); Benzodiazepines Screen Urine Negative (Negative); Cocaine Screen Urine Negative (Negative); Opiate Screen Urine Negative (Negative); PCP Screen Urine Negative (Negative); THC Screen Urine Negative (Negative)
[2024-01-11] MEDS: cefTRIAXone 1,000 mg SDV 1000 MG IVP (23:03)
[2024-01-12] VITALS (13 sets, daily range): BP systolic 103–161; BP diastolic 49–93; PULSE 60–114; RESP 10–20; TEMP 36.4–36.8; O2SAT 91–96
[2024-01-12] MEDS: ipratropium-albuterol 3 mL Neb INHALATION ×3 (02:18→14:29)
[2024-01-12] MEDS: methylPREDNISolone sod succ 40 mg/mL INJ IVP ×2 (04:54→17:39)
[2024-01-12 06:56] LABS: Basophils % 0.1 %; Hematocrit 45.5 % (37-53); Lymphocytes # 1.6 10^3/uL (0.8-4.8); Lymphocytes % 11.7 %; Mean Corpuscular HGB Conc 33.4 g/dL (30-55); Mean Corpuscular Volume 86.8 fl (82-101); Mean Platelet Volume 9.6 fL (7.4-10.4); Monocytes # 0.6 10^3/uL (0.2-0.9); Monocytes % 4.1 %; Neutrophils # 11.44 10^3/uL (1.8-7.7); Neutrophils % 83.6 %; Nucleated Red Blood Cells % 0 %; Platelet Count 319 10^3/cmm (157-399); Red Blood Count 5.24 10^6/uL (3.85-5.65); Red Cell Distribution Width 12.8 % (12.1-15.1); White Blood Count 13.69 10^3/uL (3.29-11.43)
[2024-01-12 07:16] LABS: Alanine Aminotransferase 85 U/L (0-41); Albumin Level 4.4 g/dL (3.5-5.2); Alkaline Phosphatase 91 U/L (40-130); Anion Gap 15.5 (5-19); Aspartate Amino Transferase 26 U/L (0-40); Blood Urea Nitrogen 15 mg/dL (6-20); Calcium 9.1 mg/dL (8.5-10.5); Carbon Dioxide 24 mmol/L (22-29); Chloride 100 mmol/L (98-107); Creatinine Clr Calc Pharmacy 128.2402; Globulin 2.9 g/dL (1.3-4.6); Glomerular Filtration Rate 80.3 mL/min (90-130); Glucose 176 mg/dL (65-115); Osmolality Calculated 285 mOsm/kg (285-295); Potassium 4.5 mmol/L (3.5-5.1); Sodium 135 mmol/L (136-145); Total Bilirubin 0.3 mg/dL (0.15-1.2); Total Protein 7.3 g/dL (6.6-8.7)
[2024-01-12 07:35] LABS: Folate Level 6.1 ng/mL (4.5-32.2)
[2024-01-12 07:38] LABS: Magnesium 2.2 mg/dL (1.7-2.3)
[2024-01-12] MEDS: pantoprazole DR 40 mg Tablet PO (07:59)
[2024-01-12] MEDS: benzonatate 100 mg Capsule PO (07:59)
[2024-01-12] MEDS: doxycycline 100 mg Tablet PO ×2 (08:00→17:39)
[2024-01-12] MEDS: budesonide 0.5 mg/2 mL Neb INHALATION (08:46)
--- NOTE | 2024-01-12 12:24 | P.PN_ITS ---
Subjective 2 Subjective: No acute events overnight. Down to 2 L of oxygen supplementation. States feeling slightly better but still getting out of breath on minimal ambulation. Vitals/I&O/Wt Last Vital Signs Temp 97.5 F L 01/12/24 12:22 Pulse 76 01/12/24 12:22 Resp 19 H 01/12/24 12:22 BP 123/52 01/12/24 12:22 Pulse Ox 95 01/12/24 12:22 O2 Del Method Nasal Cannula 01/12/24 12:22 O2 Flow Rate 2 01/12/24 08:45 01/11/24 01/12/24 01/12/24 22:59 06:59 14:59 Intake Total 240 / 720 240 / 240 Balance 240 / 720 240 / 240 Weight last 48 hrs Weight 111.754 kg Weight 107.728 kg Weight 107.728 kg Weight 104.326 kg Physical Exam 2 Narrative: General: No acute distress, AO x3 HEENT: PERRLA, pupils bilaterally equal and reactive, pallors not present Chest: scattered wheezing to auscultation B/L ; R>L. CVS: S1-S2 regular, no murmurs, no tachycardia, no gallops, no rubs Abdomen: Soft, nontender, no organomegaly, bowel sounds present Neuro: No focal deficits, no facial deformity, AO x3, power 5/5 in all limbs Data 01/12/24 06:24 01/12/24 06:24 Micro: Microbiology 01/11/24 11:56 Gram Stain - Final Sputum - Expectorated Sputum Sputum Culture - Preliminary 01/10/24 22:47 Blood Culture - Preliminary Blood NEGATIVE TO DATE 01/10/24 21:50 Blood Culture - Preliminary Blood NEGATIVE TO DATE 01/11/24 05:32 Bacterial Antigens - Final Urine Kidney 01/11/24 05:32 Legionella Urinary Antigen - Final Urine,Voided Bacterial Antigens - Final A&P Assessment and plan (1) Community acquired pneumonia: Qualifiers: Laterality: left Lung location: unspecified part of lung Qualified Code(s): J18.9 - Pneumonia, unspecified organism (2) Acute hypoxemic respiratory failure: (3) Reactive airway disease: (4) Acute bronchitis: Plan 28-year-old male without any significant known comorbidities presenting to the hospital today with chief complaints of 1 week of cough and dyspnea which has been progressing over the past week. He has a new oxygen requirement of 3 L/min today. CTA of the chest negative for pulmonary embolism. Showed scattered bi lateral multifocal opacities which likely represent community-acquired pneumonia, possible atypical pneumonia. Possibility of recent viral pneumonitis with overlying acute bacterial bronchitis versus pneumonia not excluded. MRSA swab negative. Continue with IV ceftriaxone and oral doxycycline for community-acquired pneumonia with atypical coverage. Wean Solu-Medrol to 40 mg every 12 hourly. Supplementation keeping saturation over 90%. DuoNeb every 6 hours, Pulmicort twice daily. Regular diet DVT prophylaxis: Lovenox 40 mg subcutaneously every 24 hours Full code Attestations 2 Medical Necessity Statement*: Requires further hospitalization for management of hypoxia respiratory failure in setting of left lower lobe community-acquired pneumonia with reactive airway disease in young Diagnoses Community acquired pneumonia J18.9 Laterality: left Lung location: unspecified part of lung Acute hypoxemic respiratory failure J96.01 Reactive airway disease J45.909 Acute bronchitis J20.9
[2024-01-12] MEDS: cefTRIAXone 1,000 mg SDV 1000 MG IVP (22:16)
[2024-01-13] VITALS (8 sets, daily range): BP systolic 130–156; BP diastolic 84–97; PULSE 60–96; RESP 16–18; TEMP 36.4–36.6; O2SAT 93–96
[2024-01-13] MEDS: ipratropium-albuterol 3 mL Neb INHALATION ×2 (02:36→08:48)
[2024-01-13] MEDS: methylPREDNISolone sod succ 40 mg/mL INJ IVP (05:19)
[2024-01-13 06:03] LABS: Basophils % 0.2 %; Eosinophils % 0.1 %; Hematocrit 43.7 % (37-53); Lymphocytes # 3.5 10^3/uL (0.8-4.8); Lymphocytes % 21.9 %; Mean Corpuscular HGB Conc 32.5 g/dL (30-55); Mean Corpuscular Hemoglobin 28.8 pg (27-33); Mean Corpuscular Volume 88.6 fl (82-101); Mean Platelet Volume 9.8 fL (7.4-10.4); Monocytes % 6.6 %; Neutrophils # 11.21 10^3/uL (1.8-7.7); Neutrophils % 70.5 %; Nucleated Red Blood Cells % 0 %; Platelet Count 282 10^3/cmm (157-399); Red Blood Count 4.93 10^6/uL (3.85-5.65); Red Cell Distribution Width 12.8 % (12.1-15.1); White Blood Count 15.87 10^3/uL (3.29-11.43)
[2024-01-13 06:17] LABS: Alanine Aminotransferase 93 U/L (0-41); Alkaline Phosphatase 82 U/L (40-130); Aspartate Amino Transferase 34 U/L (0-40); Blood Urea Nitrogen 15 mg/dL (6-20); Calcium 8.7 mg/dL (8.5-10.5); Carbon Dioxide 27 mmol/L (22-29); Chloride 104 mmol/L (98-107); Creatinine Clr Calc Pharmacy 141.6869; Globulin 2.7 g/dL (1.3-4.6); Glomerular Filtration Rate 89.6 mL/min (90-130); Glucose 126 mg/dL (65-115); Osmolality Calculated 290 mOsm/kg (285-295); Sodium 139 mmol/L (136-145); Total Bilirubin 0.2 mg/dL (0.15-1.2); Total Protein 6.7 g/dL (6.6-8.7)
[2024-01-13] MEDS: doxycycline 100 mg Tablet PO (08:12)
[2024-01-13] MEDS: pantoprazole DR 40 mg Tablet PO (08:13)
[2024-01-13] MEDS: budesonide 0.5 mg/2 mL Neb INHALATION (08:48)
--- NOTE | 2024-01-13 09:49 | PC.CHAP ---
Pastoral Care Encounter/Spiritual Assessment Type of Contact [] Declined industrial methods consultant visit [] Patient/Family/Request visit [] Outpatient visit [] Follow-up visit [] Physician referral [] Code/Alert [x] Routine visit [] Staff referral [] Actively dying [] Patient sleeping [] Family support [] [] Out of room [] Palliative care [] [x] Receiving care in room [] Pre-surgical visit [] Trauma [] Long length of stay [] ICU visit [] Other: Relational/Emotional Strength [] Patient feels connected with others/family/visitors/staff [] Distress [] Loneliness/isolation [] Abandonment Spirituality of Patient [] Person of [place] [] Attends Advent of their [place] [] Believes in Prayer [] Reads Bible or Rastafarian materials [] There are Spiritual issues to be addressed Brazer Resistance Interventions [x] Prayer [] Active listening [] Non-anxious presence [] Spiritual/emotional support [] Crisis/trauma care [] Spiritual counseling [] Bereavement support [] Provided bereavement packet [] Provided Bible/devotional materials [] Provided toy/stuffed animal, coloring book to patient or family member [] Provided Communion [] Anointing/Raymond [] Salvation [] Completed spiritual assessment [] Other: Impact on Illness or Injury [] Angry [] Fearful [] Anxious [] Often cries [] Exhaustion [] Unable to work [] Unable to attend episcopalian [] Unable to walk/stand [] Unable to read [] Unable to drive [] Unable to eat/drink [] Unable to sleep [] Unable to be with family [] Patient intubated [] Other: Summary Time spent with patient
--- NOTE | 2024-01-13 11:25 | PM.DCS ---
Discharge Providers Date of Admission: 01/11/24 00:51 Date of Discharge: January 13, 2024 Attending Provider at Admission: Enriqueta Coleman MD Attending Provider at Discharge: Starla Osman MD Diagnoses at Discharge Discharge Diagnosis (1) Community acquired pneumonia: Status: Acute Qualifiers: Laterality: left Lung location: unspecified part of lung Qualified Code(s): J18.9 - Pneumonia, unspecified organism (2) Acute hypoxemic respiratory failure: Status: Resolved (3) Reactive airway disease: Status: Acute (4) Acute bronchitis: Status: Resolved Reason for Visit Reason for Visit: trouble breathing Hospital Course Hospital Course Patient presented to the hospital for asthma flare versus possible atypical pneumonia. Patient was treated with ceftriaxone oral doxycycline and steroids. He was discharged home on Medrol Dosepak and to complete antibiotics for another 3 days to equal total 7 days. He was also given albuterol inhaler. It seems patient had reactive airway disease. He does not take any steroids at home and has never had an exacerbation before in the past. Patient to follow-up with primary care doctor as an outpatient to decide on further steroids. He is in agreement with the plan. On day of discharge lungs are absolutely clear to auscultation with no wheezes rhonchi or rales present. Physical Exam Narrative: General: No acute distress, AO x3 HEENT: PERRLA, pupils bilaterally equal and reactive, pallors not present Chest: scattered wheezing to auscultation B/L ; R>L. CVS: S1-S2 regular, no murmurs, no tachycardia, no gallops, no rubs Abdomen: Soft, nontender, no organomegaly, bowel sounds present Neuro: No focal deficits, no facial deformity, AO x3, power 5/5 in all limbs Discharge Data Studies Completed and Pending Completed Studies During Hospitalization Category Date Time Status CTA chest [CT angio chest PE protcl [id number]] Stat Cat Scan 01/10/24 21:39 Completed XR chest 1V portable [id number] Stat Exams 01/10/24 20:04 Completed Pending at discharge Category Date Time Status Blood Culture Stat Lab 01/10/24 22:47 Results MAG [Magnesium] AM LABS Lab 01/14/24 04:00 Ordered Radiology Impressions Chest X-Ray 01/10/24 20:04 IMPRESSION: 1. No acute findings. 2. Increased left hilar prominence is nonspecific. This could represent lymphadenopathy or other etiology. Nonemergent CT chest could be considered for further assessment. Chest CTA 01/10/24 21:39 IMPRESSION: 1. No evidence of pulmonary emboli. 2. Scattered ground-glass opacities in the left upper and lower lobes could represent a multifocal infection from an atypical infectious process. Recommend imaging follow-up after clinical treatment to document resolution. 3. Severe hepatic steatosis. Laboratory Results WBC 15.87 10^3/uL (3.29-11.43) H 01/13/24 05:51 RBC 4.93 10^6/uL (3.85-5.65) 01/13/24 05:51 Hgb 14.20 g/dL (11.27-16.99) 01/13/24 05:51 Hct 43.7 % (37-53) 01/13/24 05:51 MCV 88.6 fl (82-101) 01/13/24 05:51 MCH 28.8 pg (27-33) 01/13/24 05:51 MCHC 32.5 g/dL (30-55) 01/13/24 05:51 RDW 12.8 % (12.1-15.1) 01/13/24 05:51 Plt Count 282 10^3/cmm (157-399) 01/13/24 05:51 MPV 9.8 fL (7.4-10.4) 01/13/24 05:51 Neut % (Auto) 70.5 % 01/13/24 05:51 Lymph % (Auto) 21.9 % 01/13/24 05:51 [place]ole % (Auto) 6.6 % 01/13/24 05:51 Eos % (Auto) 0.1 % 01/13/24 05:51 Baso % (Auto) 0.2 % 01/13/24 05:51 Neut # (Auto) 11.21 10^3/uL (1.8-7.7) H 01/13/24 05:51 Lymph # (Auto) 3.5 10^3/uL (0.8-4.8) 01/13/24 05:51 [place] # (Auto) 1.0 10^3/uL (0.2-0.9) H 01/13/24 05:51 Eos # (Auto) 0.0 10^3/uL (0.0-0.8) 01/13/24 05:51 Baso # (Auto) 0.0 10^3/uL (0.0-0.1) 01/13/24 05:51 Nucleated RBC % (auto) 0 % 01/13/24 05:51 Nucleated RBCs # 0.0 /100WBC 01/13/24 05:51 Specimen Type Arterial 01/10/24 21:46 Sample Site Radial, right 01/10/24 21:46 ABG pH 7.36 (7.35-7.45) 01/10/24 21:46 ABG pCO2 42.5 mmHg (35-45) 01/10/24 21:46 ABG pO2 69.1 mmHg (80.0-100.0) L 01/10/24 21:46 ABG PO2/FiO2 Ratio 215 01/10/24 21:46 ABG HCO3 24.2 mmol/L (22-26) 01/10/24 21:46 ABG Base Excess -1.4 mmol/L (-2.0-2.0) 01/10/24 21:46 Sawyer Test Pos 01/10/24 21:46 Hematocrit 52.5 % (42-52) H 01/10/24 21:46 O2 Delivery Device Nc 01/10/24 21:46 O2 Liters/Min 3.0 % 01/10/24 21:46 FiO2 32.0 % 01/10/24 21:46 [employer] Owner Operator Truck Driver ID [id number] 01/10/24 21:46 Sodium 139 mmol/L (136-145) 01/13/24 05:51 Potassium 4.0 mmol/L (3.5-5.1) 01/13/24 05:51 Chloride 104 mmol/L (98-107) 01/13/24 05:51 Carbon Dioxide 27 mmol/L (22-29) 01/13/24 05:51 Anion Gap 12.0 (5-19) 01/13/24 05:51 BUN 15 mg/dL (6-20) 01/13/24 05:51 Creatinine 1.0 mg/dL (0.7-1.2) 01/13/24 05:51 GFR Calculation 89.6 mL/min (90-130) L 01/13/24 05:51 Glucose 126 mg/dL (65-115) H 01/13/24 05:51 Estimat Average Glucose 111 01/11/24 11:15 Hemoglobin A1c 5.5 % (4.0-6.0) 01/11/24 11:15 Calculated Osmolality 290 mOsm/kg (285-295) 01/13/24 05:51 Lactic Acid 1.7 mmol/L (0.5-2.2) 01/10/24 21:50 Calcium 8.7 mg/dL (8.5-10.5) 01/13/24 05:51 Magnesium 2.0 mg/dL (1.7-2.3) 01/13/24 05:51 Iron 78 ug/dL (59-158) 01/11/24 11:15 TIBC 306 mcg/dl 01/11/24 11:15 % Saturation 25.4 % (20-50) 01/11/24 11:15 Unsat Iron Binding 228 ug/dL (112-347) 01/11/24 11:15 Total Bilirubin 0.2 mg/dL (0.15-1.2) 01/13/24 05:51 AST 34 U/L (0-40) 01/13/24 05:51 ALT 93 U/L (0-41) H 01/13/24 05:51 Alkaline Phosphatase 82 U/L (40-130) 01/13/24 05:51 Troponin T Baseline 8 ng/L (0-15) 01/10/24 21:50 Troponin T 120 Minute 6.00 ng/L (0-15) 01/11/24 00:00 Delta Troponin T -2.00 ABS# (0-10) L 01/11/24 00:00 Troponin T Hi Sens 6Hr 6.00 ng/L (0-15) 01/11/24 03:31 Troponin T Hi Sens 6Hr Delta -2.00 ng/L (0-12) L 01/11/24 03:31 C-Reactive Protein 19.2 mg/L (0.0-4.9) H 01/11/24 03:31 NT-Pro-B Natriuret Pep < 36 pg/mL (0-125) 01/11/24 03:31 Total Protein 6.7 g/dL (6.6-8.7) 01/13/24 05:51 Albumin 4.0 g/dL (3.5-5.2) 01/13/24 05:51 Globulin 2.7 g/dL (1.3-4.6) 01/13/24 05:51 Vitamin B12 584 pg/mL (232-1245) 01/11/24 11:15 Folate 6.1 ng/mL (4.5-32.2) 01/12/24 06:24 Procalcitonin 0.09 ng/mL (0-0.5) 01/11/24 11:15 Nasal MRSA (PCR) Not detected (Negative) 01/11/24 05:05 Urine Opiates Screen Negative ng/mL (Negative) 01/11/24 05:32 Ur Barbiturates Screen Negative ng/mL (Negative) 01/11/24 05:32 Ur Phencyclidine Scrn Negative ng/mL (Negative) 01/11/24 05:32 Ur Amphetamines Screen Negative ng/mL (Negative) 01/11/24 05:32 U Benzodiazepines Scrn Negative ng/mL (Negative) 01/11/24 05:32 Urine Cocaine Screen Negative ng/mL (Negative) 01/11/24 05:32 U Marijuana (THC) Screen Negative ng/mL (Negative) 01/11/24 05:32 Adenovirus (PCR) Not detected (NOT DETECT) 01/11/24 11:56 C. pneumoniae DNA (PCR) Not detected (NOT DETECT) 01/11/24 11:56 Coronavirus (PCR) Negative (Negative) 01/10/24 21:26 Coronavirus 229E (PCR) Not detected (NOT DETECT) 01/11/24 11:56 Human Metapneumovir PCR Not detected (NOT DETECT) 01/11/24 11:56 Influenza A (H1) PCR Not detected (NOT DETECT) 01/11/24 11:56 Influenza A (PCR) Negative (Negative) 01/10/24 21:26 Influ A (H1/09) PCR Not detected (NOT DETECT) 01/11/24 11:56 Influenza A (H3) PCR Not detected (NOT DETECT) 01/11/24 11:56 Influenza Type A (PCR) Not detected (NOT DETECT) 01/11/24 11:56 Influenza Type B (PCR) Not detected (NOT DETECT) 01/11/24 11:56 M. pneumoniae (PCR) Not detected (NOT DETECT) 01/11/24 11:56 Parainfluenza 1 (PCR) Not detected (NOT DETECT) 01/11/24 11:56 Parainfluenza 2 (PCR) Not detected (NOT DETECT) 01/11/24 11:56 Parainfluenza 3 (PCR) Not detected (NOT DETECT) 01/11/24 11:56 Parainfluenza 4 (PCR) Not detected (NOT DETECT) 01/11/24 11:56 RSV (PCR) Negative (Negative) 01/10/24 21:26 RSV Type A (PCR) Not detected (NOT DETECT) 01/11/24 11:56 RSV Type B (PCR) Not detected (NOT DETECT) 01/11/24 11:56 Entero/Rhino (PCR) Not detected (NOT DETECT) 01/11/24 11:56 SARS-CoV-2 (PCR) Not detected (NOT DETECT) 01/11/24 11:56 Vitals Last Vital Signs Temp 97.8 F 01/13/24 07:52 Pulse 73 01/13/24 08:59 Resp 16 01/13/24 08:48 BP 130/84 01/13/24 07:52 Pulse Ox 95 01/13/24 08:48 O2 Del Method Room Air 01/13/24 08:48 O2 Flow Rate 1 01/12/24 14:05 Discharge Plan Discharge Patient Disposition: Home Condition: Stable Prescriptions: New doxycycline monohydrate 100 mg Tablet 100 mg PO BID Qty: 6 0RF albuterol sulfate 90 mcg/actuation HFA aerosol inhaler 2 inh inhalation Q4H PRN (Reason: shortness of breath or wheezing) Qty: 8.5 0RF methylprednisolone [Medrol (Kit)] 4 mg tablets,dose pack See Rx Instructions .ROUTE .COMPLEX Qty: 21 0RF Rx Instructions: orally per package directions omeprazole 20 mg capsule,delayed release(DR/EC) 20 mg PO DAILY Qty: 10 0RF Discontinued ibuprofen 600 mg tablet 600 mg PO Q8H PRN (Reason: pain) Qty: 30 0RF Discharge Orders: Discharge Order (Routine); Ordered 01/13/24 Ordered By: Starla Osman Referrals: Lilli Oneil DO [Physician] - 7-10 days (We have notified your physician's clinic of the need for a follow-up appointment to be scheduled. If you have not heard from them within the next 2 business days, please call them directly. ) Discharge Diet: Regular Discharge Activity: Resume usual activity Patient Instructions: Doxycycline (By mouth), Albuterol (By breathing), Omeprazole (By mouth), Methylprednisolone (By mouth), Opioid Safety, Pneumonia Stoplight Discharge Attestations Time Spent in Discharge Care*: greater than 30 min Quality Metrics Clinical Quality Measures [ No reported AMI, CVA or VTE this stay] Coding Level of Care Code Acute Code for Chg Fwd Diagnoses Community acquired pneumonia J18.9 Laterality: left Lung location: unspecified part of lung Acute hypoxemic respiratory failure J96.01 Reactive airway disease J45.909 Acute bronchitis J20.9
== END 2024-01-13 12:30 | disposition home or self-care (01) | DRG 193 ==
LOC: ER 23:50 → MEDSURG 01-11 08:41
PROVIDERS: Student in an Organized Health Care Education/Training Program; Admitting Provider Student in an Organized Health Care Education/Training Program; Emergency Provider Emergency Medicine; Visit Provider Internal Medicine
DX: J18.9 Pneumonia, unspecified organism (principal); J96.01 Acute respiratory failure with hypoxia; J45.909 Unspecified asthma, uncomplicated; J20.9 Acute bronchitis, unspecified; Z87.891 Personal history of nicotine dependence
CPT/HCPCS: 0241U; 36415; 36600; 71045; 71275; 80048; 80053; 80306; 82607; 82746; 82803; 83036; 83540; 83550; 83605; 83735; 83880; 84145; 84484; 85025; 86140; 86403; 87040; 87070; 87205; 87449; 87486; 87581; 87633; 93005; 94640; 96365; 96367; 96375; 99285; J0456; J0696; J2919; J3475; J7050; J7626

== ENCOUNTER 2024-07-24 15:44 | Emergency (ER) | payer MEDICAID, SELFPAY ==
[2024-07-24 15:56] VITALS: BP 136/84; PULSE 88; RESP 18; TEMP 36.7; O2SAT 94
--- NOTE | 2024-07-24 16:04 | ECG_ITS ---
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 Measurements Intervals [place] Rate: 84 P: 29 MA: 140 QRS: 60 QRSD: 89 T: 36 QT: 341 QTc: 405 Interpretive Statements SINUS RHYTHM Compared to ECG 01/11/2024 03:12:14 No significant changes Electronically Signed On 07-25-2024 13:13:52 CDT by Livan Orosco M.D. [email or web address]
--- NOTE | 2024-07-24 16:33 | ED_ITS ---
HPI - SOB/Dyspnea 2 General: Chief Complaint: Shortness of Breath/Dyspnea Stated Complaint: SOB / Fall Time Seen by Provider: 07/24/24 16:33 History of Present Illness: HPI Narrative: 28-year-old male presents to the emergen cy room with complaints of cough. Patient states he has had a moderate cough for the last week today he had a coughing fit to the point he had a collapsed and syncopal episode. Cough has been nonproductive. No fever sweats or chills. Patient has a history of asthma. He is awake and alert. He states when he fell he hit the back of his head. No vomiting no headache Associated symptoms: Deny abdominal pain, chest pain or fever(s) Related Data Previous Rx's ?Medication ?Instructions ?Recorded albuterol sulfate 90 mcg/actuation 2 inh inhalation Q4 H PRN shortness 02/17/24 aerosol inhaler of breath or wheezing #8.5 g yina budesonide-formoterol HFA 160 2 inh inhalation BID #10 .2 grams 02/17/24 mcg-4.5 mcg/actuation aerosol inhaler albuterol sulfate 90 mcg/actuation 2 inh inhalation Q4 H PRN shortness 07/24/24 aerosol inhaler of breath or wheezing #18 gr ams methylprednisolone 4 mg tablets in See Rx Instructions PO .COMPLEX 07/24/24 a dose pack (Medrol (Kit)) #21 ea Allergies Allergy/AdvReac Type Severity Reaction Status Date / Time No Known Allergies Allergy Verified 07/24/24 16:01 Review of Systems 2 Const: Denies: fever(s) or chills Card: Denies: chest pain Resp: Denies: dyspnea GI: Denies: abdominal pain : Denies: dysuria, urinary frequency or urinary urgency Musc: Denies: neck pain or back pain Skin/Breast: Denies: rash PFSH ED 2 PFSH: Medical History No pertinent family history No pertinent past medical history Social History Smoking and tobacco/nicotine status: former use of tobacco/nicotine Substance/Drug Use: never Physical Exam 2 Const: COMMON NORMALS: no acute distress GENERAL APPEARANCE: cooperative and comfortable ORIENTATION/CONSCIOUSNESS: Yes awake, Yes oriented to person, Yes oriented to place and Yes oriented to time HENMT: COMMON NORMALS: normocephalic, atraumatic and hearing grossly normal bilaterally HEAD & SCALP: normocephalic and atraumatic Resp: COMMON NORMALS: normal respiratory effort, No retractions and No use of accessory muscles AUSCULTATION: wheezes (Scant) Cardio: COMMON NORMALS: regular rate, regular rhythm and No murmurs present (Cardio) RATE: regular rate RHYTHM: regular rhythm GI: COMMON NORMALS: Soft to palpation and No hepatosplenomegaly present A USCULTATION: Yes normoactive bowel sounds PALPATION: Yes Soft to palpation, No Tenderness to palpation present (GI), No Guarding due to palpation present (GI) and Yes No hepatosplenomegaly present Extremity: COMMON NORMALS: normal to inspection, capillary refill normal, no clubbing, cyanosis or edema, no calf tenderness and no pedal edema Neuro: SENSORIUM/ORIENTATION: Yes oriented to person, Yes oriented to place and Yes oriented to time OTHER: Neurologically intact no focal neurologic deficits are noted Skin: COMMON NORMALS: no rashes or lesions noted GENERAL SKIN EXAM: no rashes or lesions noted Course 2 Vital Signs: Vital signs: Vital Signs Temperature 98.1 F 07/24/24 15:56 Pulse Rate 73 07/24/24 17:53 Respiratory Rate 18 07/24/24 15:56 Blood Pressure 138/67 07/24/24 17:53 Pulse Oximetry 96 07/24/24 17:53 Oxygen Delivery Me thod Room Air 07/24/24 15:56 MDM - SOB/Dyspnea Medical Decision Making CT of head is negative. Patient has no significant exam findings. Very minimal wheeze on exam. Will discharge patient home on steroid taper. Suspect his syncopal episodes are due to the paroxysmal coughing fit. Medical Records I reviewed the patient's medical records. Lab Data I reviewed the patient's lab results. 07/24/24 16:23 07/24/24 16:23 Labs/Radiology: Radiology Impressions Head CT 07/24/24 16:35 IMPRESSION: No acute intracranial abnormality. Laboratory Results WBC 6.53 10^3/uL (3.29-11.43) 07/24/24 16:23 RBC 5.47 10^6/uL (3.85-5.65) 07/24/24 16:23 Hgb 15.50 g/dL (11.27-16.99) 07/24/24 16:23 Hct 46.6 % (37-53) 07/24/24 16:23 MCV 85.2 fl (82-101) 07/24/24 16:23 MCH 28.3 pg (27-33) 07/24/24 16: MCHC 33.3 g/dL (30-55) 07/24/24 16:23 RDW 13.1 % (12.1-15.1) 07/24/24 16:23 Plt Count 262 10^3/cmm (157-399) 07/24/24 16: MPV 9.9 fL (7.4-10.4) 07/24/24 16:23 Neut % (Auto) 46.7 % 07/24/24 16:23 Lymph % (Auto) 30.9 % 07/24/24 16:23 [facility] % (Auto) 8.7 % 07/24/24 16:23 Eos % (Auto) 12.1 % 07/24/24 16:23 Baso % (Auto) 1.1 % 07/24/24 16:23 Neut # (Auto) 3.05 10^3/uL (1.8-7.7) 07/24/24 16:23 Lymph # (Auto) 2.0 10^3/uL (0.8-4.8) 07/24/24 16:23 [facility] # (Auto) 0.6 10^3/uL (0.2-0.9) 07/24/24 16:23 Eos # (Auto) 0.8 10^3/uL (0.0-0.8) 07/24/24 16:23 Baso # (Auto) 0.1 10^3/uL (0.0-0.1) 07/24/24 16: Nucleated RBC % (auto) 0 % 07/24/24 16: Nucleated RBCs # 0.0 /100WBC 07/24/24 16:23 Sodium 143 mmol/L (136-145) 07/24/24 16:23 Potassium 4.1 mmol/L (3.5-5.1) 07/24/24 16:23 Chloride 104 mmol/L (98-107) 07/24/24 16:23 Carbon Dioxide 24 mmol/L (22-29) 07/24/24 16:23 Anion Gap 19.1 (5-19) H 07/24/24 16:23 BUN 8 mg/dL (6-20) 07/24/24 16:23 Creatinine 1.1 mg/dL (0.7-1.2) 07/24/24 16:23 GFR Calculation 80.3 mL/min (90-130) L 07/24/24 16:23 Glucose 90 mg/dL (65-115) 07/24/24 16:23 Calculated Osmolality 294 mOsm/kg (285-295) 07/24/24 16:23 Calcium 9.4 mg/dL (8.5-10.5) 07/24/24 16:23 Total Bilirubin 0.7 mg/dL (0.15-1.2) 07/24/24 16:23 AST 108 U/L (0-40) H 07/24/24 16:23 ALT 191 U/L (0-41) H 07/24/24 16:23 Alkaline Phosphatase 75 U/L (40-130) 07/24/24 16:23 Total Protein 7.6 g/dL (6.6-8.7) 07/24/24 16:23 Albumin 4.7 g/dL (3.5-5.2) 07/24/24 16:23 Globulin 2.9 g/dL (1.3-4.6) 07/24/24 16:23 Influenza A (PCR) Negative (Negative) 07/24/24 17:20 Influenza Type B (PCR) Negative (Negative) 07/24/24 17:20 RSV (PCR) Negative (Negative) 07/24/24 17:20 SARS-CoV-2 (PCR) Negative (Negative) 07/24/24 17:20 All radiology interpretation(s) finalized by discharge Discharge Plan Discharge Patient Disposition: Home Clinical Impression: Reactive airway disease, Syncope, vasovagal Condition: Stable Prescriptions: New methylprednisolone [Medrol (Kit)] 4 mg tablets,dose pack See Rx Instructions .ROUTE .COMPLEX Qty: 21 0RF Rx Instructions: orally per package directions albuterol sulfate 90 mcg/actuation HFA aerosol inhaler 2 inh INHALATION Q4H PRN (Reason: shortness of breath or wheezing) Qty: 18 0RF No Action albuterol sulfate 90 mcg/actuation HFA aerosol inhaler 2 inh inhalation Q4H PRN (Reason: shortness of breath or wheezing) Qty: 8.5 2RF budesonide-formoterol 160-4.5 mcg/actuation HFA aerosol inhaler 2 inh inhalation BID Qty: 10.2 0RF Discharge Orders: Discharge ED (Routine); Ordered 07/24/24 Ordered By: Mike Higginbotham Discharge Diet: Usual diet Discharge Activity: Increase activity as tolerated Patient Instructions: Opioid Safety, Pain Management Activity Restrictions/Additional Instructions: Thank you for choosing [facility] for your healthcare needs today. It is very important that you follow up as instructed or that you return to the Emergency Department should you have concerns or if your condition changes or worsens in any way. You are seen in the emergency room after a coughing fit with a syncopal episode. This is what likely caused you to pass out. Your chest x-ray is normal you are mentions that you have been coughing more lately. You have minimal wheezing while in the emergency room recommend that you take a course of prednisone use your albuterol as needed follow-up with your primary care doctor Print Language: Eritrean Coding Level of Care Code ED Assistant Child Care Teacher for Laxmi Rodriguez
--- NOTE | 2024-07-24 16:34 | XRR_ITS ---
PROCEDURE INFORMATION: Exam: XR Chest Exam date and time: 07/24/2024 4:39 PM Age: 28 years old Clinical indication: Cough and shortness of breath; Additional info: Dyspnea/cough TECHNIQUE: Imaging protocol: Radiologic exam of the chest. Views: 1 view. COMPARISON: CT angio chest PE protcl [id number] 01/10/2024 10:04 PM FINDINGS: Lungs: Unremarkable. No consolidation. Pleural spaces: Unremarkable. No pleural effusion. No pneumothorax. Heart/Mediastinum: Unremarkable. No cardiomegaly. Bones/joints: Unremarkable. XR/XR chest 1V portable [id number] IMPRESSION: No acute findings.
--- NOTE | 2024-07-24 16:35 | CTR_ITS ---
PROCEDURE INFORMATION: Exam: CT Head Without Contrast Exam date and time: 07/24/2024 4:49 PM Age: 28 years old Clinical indication: Syncope and collapse; Additional info: Trauma TECHNIQUE: Imaging protocol: Computed tomography of the head without contrast. Radiation optimization: All CT scans at this facility use at least one of these dose optimization techniques: automated exposure control; mA and/or kV adjustment per patient size (includes targeted exams where dose is matched to clinical indication); or iterative reconstruction. COMPARISON: No relevant prior studies available. RADIATION DOSE METRICS: Total DLP (mGy-cm): 1081.78 FINDINGS: Brain: Normal. No hemorrhage. Unremarkable white matter. No mass effect or acute infarct. Cerebral ventricles: No ventriculomegaly. No midline shift. Paranasal sinuses: Visualized sinuses are unremarkable. No fluid levels. Mastoid air cells: Visualized mastoid air cells are well aerated. Bones: Unremarkable. No acute fracture. Soft tissues: Unremarkable. CT/CT head wo con* [id number] IMPRESSION: No acute intracranial abnormality.
[2024-07-24 16:44] LABS: Basophils # 0.1 10^3/uL (0.0-0.1); Basophils % 1.1 %; Eosinophils # 0.8 10^3/uL (0.0-0.8); Eosinophils % 12.1 %; Hematocrit 46.6 % (37-53); Lymphocytes % 30.9 %; Mean Corpuscular HGB Conc 33.3 g/dL (30-55); Mean Corpuscular Hemoglobin 28.3 pg (27-33); Mean Corpuscular Volume 85.2 fl (82-101); Mean Platelet Volume 9.9 fL (7.4-10.4); Monocytes # 0.6 10^3/uL (0.2-0.9); Monocytes % 8.7 %; Neutrophils # 3.05 10^3/uL (1.8-7.7); Neutrophils % 46.7 %; Nucleated Red Blood Cells % 0 %; Platelet Count 262 10^3/cmm (157-399); Red Blood Count 5.47 10^6/uL (3.85-5.65); Red Cell Distribution Width 13.1 % (12.1-15.1); White Blood Count 6.53 10^3/uL (3.29-11.43)
[2024-07-24 17:18] LABS: Alanine Aminotransferase 191 U/L (0-41); Albumin Level 4.7 g/dL (3.5-5.2); Alkaline Phosphatase 75 U/L (40-130); Anion Gap 19.1 (5-19); Aspartate Amino Transferase 108 U/L (0-40); Blood Urea Nitrogen 8 mg/dL (6-20); Calcium 9.4 mg/dL (8.5-10.5); Carbon Dioxide 24 mmol/L (22-29); Chloride 104 mmol/L (98-107); Creatinine Clr Calc Pharmacy 125.5544; Globulin 2.9 g/dL (1.3-4.6); Glomerular Filtration Rate 80.3 mL/min (90-130); Glucose 90 mg/dL (65-115); Osmolality Calculated 294 mOsm/kg (285-295); Potassium 4.1 mmol/L (3.5-5.1); Sodium 143 mmol/L (136-145); Total Bilirubin 0.7 mg/dL (0.15-1.2); Total Protein 7.6 g/dL (6.6-8.7)
[2024-07-24 17:53] VITALS: BP 138/67; PULSE 73; O2SAT 96
[2024-07-24 18:09] LABS: Influenza A NEGATIVE (Negative); Influenza B NEGATIVE (Negative); Respiratory Syncytial Virus Ce NEGATIVE (Negative); SARS-CoV-2 PCR NEGATIVE (Negative)
== END 2024-07-24 17:54 | disposition home or self-care (01) ==
PROVIDERS: Emergency Provider Family Medicine
DX: J45.909 Unspecified asthma, uncomplicated (principal); R55 Syncope and collapse; Z11.52 Encounter for screening for COVID-19
CPT/HCPCS: 70450; 71045; 80053; 85025; 87637; 93005; 99285

== ENCOUNTER → 2024-07-28 12:20 | Outpatient (BNVA) | payer MEDICAID, SELFPAY | PROVIDERS: Visit Provider Emergency Medicine | DX: M79.671 Pain in right foot (principal) | CPT/HCPCS: 80048; 84550 ==